=== PATIENT | male | born 1950 | race Caucasian/White ===

== ENCOUNTER → 2018-03-01 | Outpatient (REF) | LOC: ZLAB.WCH 16:10 | DX: Z01.89 Encounter for other specified special examinations (principal) | CPT/HCPCS: G0103 ==

== ENCOUNTER 2020-08-14 13:39 | Inpatient (IN) | payer MEDICARE, BC ==
[~2020-08-14] VITALS: Ht 167.6 cm; Wt 73.0 kg
[2020-09-09] VITALS (12 sets, daily range): BP systolic 86–148; BP diastolic 54–85; PULSE 73–105; TEMP 97.4–98.9
[2020-09-09] MEDS ORDERED: ASPIRIN 81M81 MG/TA2 PO (05:55)
[2020-09-09] MEDS ORDERED: PRINZIDE 25 MG-1 TAB PO (05:55)
[2020-09-09] MEDS ORDERED: EPA FISH OIL1 SGL PO (05:56)
--- NOTE | 2020-09-09 15:57 | NUR ---
Patient alert and oriented, answers questions appropriately. See assessment. Abdomen soft, slight tender, non distended. Bowel sounds hypoactive x4 quads. No flatus. Lap sites x5 to abdomen with edges well approximated, no redness or drainage noted. ERAS protocol reviewed with patient. No c/o at this time.
--- NOTE | 2020-09-09 23:49 | NUR ---
Patient assessed around 2014. Alert and oriented x 4, and able to make needs known. Reported mild pain, rated as a 3 to abdomen at time of assessment. Peripheral INT to right hand. Denies SOB and dyspnea. LS CTA. Respirations even and unlabored. HRR. Capillary refill less than 3 seconds. Non-tenting skin turgor. BSAx4. Abomen soft and non-tender. Denies passing gas. Has been up walking around. 5 lab sites to abdomen. No edema. Voices no questions, needs, or concerns at this time. Resting in bed with call light within reach.
--- NOTE | 2020-09-10 00:34 | NUR ---
Patient's BP currently 86/54, rechecked multiple times. Did get dizzy and light headed when getting up. Patient stated that he had taken his home Lisinopril at bedtime. Patient did not notify or ask staff about taking medication. BP around 1999 had been 96/67. Call placed to Dr. Raymond, on-call for Dr. Rodríguez. New order for 500 ml NS bolus. Started at this time. Patient given scheduled APAP as well.
[2020-09-10 03:58] VITALS: BP 73/45; PULSE 76; TEMP 97.4
[2020-09-10 05:00] VITALS: BP 92/62
--- NOTE | 2020-09-10 05:47 | NUR ---
Patient continues to have low BP. Most recent systolic BP was in the 90s. Denies having dizzyness at this time. High fall risk precautions are in place. Denies having pain and discomfort. Received PRN APAP per orders. Resting in bed with call light within reach.
[2020-09-10 07:04] LABS: HEMATOCRIT 31.9 % (42.0-52.0)
[2020-09-10 07:38] VITALS: BP 88/44; PULSE 90; TEMP 97.9
[2020-09-10 07:38] LABS: CALCIUM 7.9 mg/dL (8.4-10.2); CREATININE, serum 2.12 (0.66-1.25); MAGNESIUM 1.6 mg/dL (1.6-2.3); PHOSPHOROUS 3.8 mg/dL (2.5-4.5); POTASSIUM 4.3 mmol/L (3.4-5.0)
--- NOTE | 2020-09-10 09:53 | NUR ---
PT INDEPENDENT IN ROOM AND HALLS. IV BOLUS COMPLETE MEDS HELD PER ORDERS.
[2020-09-10 11:23] VITALS: BP 78/42; PULSE 75; TEMP 97.4
--- NOTE | 2020-09-10 11:45 | NUR ---
Seed Trucker met with patient to discuss discharge planning. Patient lives alone in [place] and sees Dr. Hubert Feliciano for primary care. Patient obtains medications from [facility] with no difficulties. Patient does not use any DME and is independent with ADLS. Patient does not have Advance Directives and is not interested in designating DPOA-HC at this time. Patient is not , does not have children, and his parents are . Patient has two brothers, Torrey (ph#[phone]) and Mathew. Patient plans to return home upon discharge. Discharge Plan: Home
--- NOTE | 2020-09-10 12:01 | NUR ---
First visit from the air pumper. No needs right now.
--- NOTE | 2020-09-10 12:38 | NUR ---
BOLUS OF 500 MLS NS STARTED NOW PER HERIBERTO LITTLEJOHN.
[2020-09-10 12:57] LABS: BASO % 0.2 % (0.0-2.0); GRAN # 10.6 (1.4-6.5); GRAN % 74.6 % (42.2-75.2); LYMPH # 2.2 (1.2-3.4); LYMPH % 15.7 % (20.0-51.0); MEAN CELL VOLUME 96 fl (80.0-100.0); MEAN CORPUSCULAR HGB CONC 35 g/dl (33.0-37.0); MEAN PLATELET VOLUME 10.1 fl (7.4-10.4); MONO # 1.3 (0.1-0.6); MONO % 9.1 % (1.7-9.3); PLATELET COUNT 200 K/mm3 (130-400); RED BLOOD COUNT 2.86 M/mm3 (4.20-5.60); REDCELL DISTRIBUTION WIDTH-CV 12.7 % (11.5-14.5)
[2020-09-10 12:58] LABS: HEMATOCRIT 27.4 % (42.0-52.0); HEMOGLOBIN 9.5 g/dl (13.5-18.0); MEAN CORPUSCULAR HEMOGLOBIN 33 pg (27.0-31.0)
[2020-09-10 13:09] LABS: CALCIUM 7.7 mg/dL (8.4-10.2); CREATININE, serum 2.41 (0.66-1.25); POTASSIUM 3.8 mmol/L (3.4-5.0)
[2020-09-10 15:06] VITALS: BP 122/62; PULSE 102; TEMP 97.8
[2020-09-10 17:31] LABS: COLLECTION METHOD CLEAN CATCH
[2020-09-10 17:58] LABS: MUCOUS Present /lpf; PH 6 (5-8); SQUAMOUS EPITHELIAL None Seen /hpf; URINE APPEARANCE Clear; URINE BACTERIA Rare /hpf; URINE BILIRUBIN Negative (NEGATIVE); URINE BLOOD 2+ (NEGATIVE); URINE COLOR Yellow; URINE GLUCOSE 2+ (NEGATIVE); URINE KETONE Trace (NEGATIVE); URINE LEUKOCYTE ESTERASE Negative (NEGATIVE); URINE NITRATE Negative (NEGATIVE); URINE PROTEIN(semi-quant) Negative (NEGATIVE); URINE RBC 20-50 /hpf; URINE UROBILINOGEN Negative (NEGATIVE)
[2020-09-10 19:35] VITALS: BP 91/47; PULSE 88; TEMP 98.6
--- NOTE | 2020-09-10 20:00 | NUR ---
Patient sitting up in bed resting. Alert and oriented x3. Assessment complete. Denies pain at this time. Fluids infusing per orders. Lap sites x 4 and low transverse site with edges well approximated. Denies pain or further needs at this time.
[2020-09-11] VITALS (8 sets, daily range): BP systolic 83–153; BP diastolic 50–71; PULSE 87–102; TEMP 98.3–99.7
--- NOTE | 2020-09-11 00:09 | NUR ---
Contacted Jennifer LITTLEJOHN about low BP, fluid bolus initiated per orders.
--- NOTE | 2020-09-11 05:48 | NUR ---
Patient doing well throughout the night. Denies pain throughout the night. Up to restroom with SBA, having bloody stools x2. Fluids continue infusing per orders. Denies further needs at this time. Will report off to day shift.
[2020-09-11 06:45] LABS: BASO % 0.2 % (0.0-2.0); EOS % 0.1 % (0-4.0); GRAN # 9.2 (1.4-6.5); GRAN % 69.6 % (42.2-75.2); LYMPH # 2.5 (1.2-3.4); LYMPH % 18.9 % (20.0-51.0); MEAN CELL VOLUME 100 fl (80.0-100.0); MEAN CORPUSCULAR HGB CONC 34 g/dl (33.0-37.0); MEAN PLATELET VOLUME 10.3 fl (7.4-10.4); MONO # 1.4 (0.1-0.6); MONO % 10.7 % (1.7-9.3); PLATELET COUNT 201 K/mm3 (130-400); RED BLOOD COUNT 2.58 M/mm3 (4.20-5.60); REDCELL DISTRIBUTION WIDTH-CV 13.2 % (11.5-14.5)
[2020-09-11 06:48] LABS: HEMATOCRIT 25.7 % (42.0-52.0); HEMOGLOBIN 8.7 g/dl (13.5-18.0); MEAN CORPUSCULAR HEMOGLOBIN 34 pg (27.0-31.0)
[2020-09-11 06:59] LABS: CALCIUM 7.9 mg/dL (8.4-10.2); CREATININE, serum 1.05 (0.66-1.25); POTASSIUM 3.9 mmol/L (3.4-5.0)
--- NOTE | 2020-09-11 07:58 | NUR ---
Patient resting in bed. rounded, plan of care reviewed. Patient denies wanting breakfast this am. I discussed with him the importance of accurate I&O. Patient too call when he uses the restroom. Ivf per orders. Lovenox held this am per orders & we discussed importance of SCDs & ambulation of halls. Incisions site edges well approximated. Open to air. Abdomen rounded. bowels audible, he reports flatus. Will monitor.
--- NOTE | 2020-09-11 09:17 | NUR ---
Patient has ordered breakfast. Hospitals[facility] rounded. Patient plans to walk halls & brush teeth after he eats. Will continue to [facility].
--- NOTE | 2020-09-11 11:00 | NUR ---
Patient up and ambulated the halls. He was up to the bathroom & had a loose stool dark blood noted. Ivf per orders. Fresh linens & he brushed his teeth, no interest in shower at thistime.
[2020-09-11 11:25] LABS: MAGNESIUM 1.8 mg/dL (1.6-2.3)
[2020-09-11 15:19] LABS: HEMATOCRIT 22.9 % (42.0-52.0); HEMOGLOBIN 7.7 g/dl (13.5-18.0)
--- NOTE | 2020-09-11 16:12 | NUR ---
Patietn resting in bed. Up to the bathroom, dark loose stool noted. Update called to Anel Valdivia & . They were updated on H&H level and stool. Iv to Int per orders. Encouraged PO intake. Vss. Will monitor.
--- NOTE | 2020-09-11 18:33 | NUR ---
Macy had ice cream for dinner. Continue to encourage PO intake. Watching TV. Will report off to nightnurse
[2020-09-12 04:07] VITALS: BP 146/80; PULSE 91; TEMP 99.8
[2020-09-12 06:42] LABS: BASO % 0.3 % (0.0-2.0); EOS % 0.1 % (0-4.0); GRAN # 8.1 (1.4-6.5); LYMPH # 1.9 (1.2-3.4); LYMPH % 16.7 % (20.0-51.0); MEAN CELL VOLUME 96 fl (80.0-100.0); MEAN CORPUSCULAR HGB CONC 34 g/dl (33.0-37.0); MEAN PLATELET VOLUME 10.7 fl (7.4-10.4); MONO # 1.1 (0.1-0.6); MONO % 9.5 % (1.7-9.3); PLATELET COUNT 194 K/mm3 (130-400); REDCELL DISTRIBUTION WIDTH-CV 12.9 % (11.5-14.5)
[2020-09-12 06:50] LABS: HEMATOCRIT 23.1 % (42.0-52.0); HEMOGLOBIN 7.8 g/dl (13.5-18.0); MEAN CORPUSCULAR HEMOGLOBIN 33 pg (27.0-31.0)
[2020-09-12 06:55] LABS: CALCIUM 8.2 mg/dL (8.4-10.2); CREATININE, serum 0.61 (0.66-1.25); POTASSIUM 3.8 mmol/L (3.4-5.0)
[2020-09-12 07:56] VITALS: BP 149/71; PULSE 91; TEMP 98.1
--- NOTE | 2020-09-12 08:00 | NUR ---
Patient continues to have minimal appetite. He was willing to have an ensure. Po intake encouarged. He denies nausea. Pain managed per eras. Abdomen rounded. bowels audible, he reports flatus. Incisons edges well approximated, some brusing noted. brusing noted to scrotum. Int. Scds. Will continue to monitor.
[2020-09-12] MEDS ORDERED: PRINIVIL10 MG PO (09:41)
[2020-09-12] MEDS ORDERED: ADVOCATE BLOOD1 EAC1 MC (09:43)
[2020-09-12 10:17] VITALS: BP 120/66; PULSE 87
[2020-09-12 12:10] VITALS: BP 134/64; PULSE 97; TEMP 98.3
--- NOTE | 2020-09-12 14:52 | NUR ---
Patient has another ensure for lunch & cookie. No Bms yet this shit. He has been indepedent in room. Will monitor.
[2020-09-12 15:48] VITALS: BP 132/7; BP 132/71; PULSE 80; TEMP 98.4
--- NOTE | 2020-09-12 18:16 | NUR ---
Patient still has no appetite. We discussed the whole menu. He will have ensure for dinner. He ambulated halls & did well. Will report off to nightnurse
--- NOTE | 2020-09-12 19:58 | NUR ---
Awake, alert, oriented x 4, able to make all needs known, call shah w/i reach, denies pain, call shah w/i reach, updated on plan of care.
[2020-09-12 20:24] VITALS: BP 120/59; PULSE 95; TEMP 99.6
[2020-09-13 00:08] VITALS: BP 118/63; PULSE 87; TEMP 99.5
[2020-09-13 04:20] VITALS: BP 115/60; PULSE 81; TEMP 98.9
[2020-09-13 06:46] LABS: HEMATOCRIT 21.6 % (42.0-52.0); HEMOGLOBIN 7.4 g/dl (13.5-18.0)
[2020-09-13 07:37] VITALS: BP 114/60; PULSE 78; TEMP 98.4
--- NOTE | 2020-09-13 07:45 | NUR ---
Patient resting in bed. trying to eat. denies nausea. pain rating 1/10. denies the need for medication. continue to hold lisinopril with blood pressure maanged. Held ASA with H&H drop as well. Patient reports he had one stool overnight. passing flatus. Will ginger.
[2020-09-13 09:44] LABS: ALBUMIN 2.9 gm/dL (3.5-5.0); BILIRUBIN,TOTAL 0.8 mg/dL (0.0-1.0); CALCIUM 8.5 mg/dL (8.4-10.2); CREATININE, serum 0.61 (0.66-1.25); POTASSIUM 3.6 mmol/L (3.4-5.0); TOTAL PROTEIN 5.5 gm/dL (6.4-8.2)
[2020-09-13] MEDS ORDERED: NATURAL IRON65 MG PO (11:30)
[2020-09-13 11:36] VITALS: BP 160/73; PULSE 103; TEMP 97.7
[2020-09-13 12:02] VITALS: BP 130/74; PULSE 102
--- NOTE | 2020-09-13 12:45 | NUR ---
rounded. rounded. Orders obtained. Iron tab with orange juice. Patient plans on eating lunch at home. Int Dc. Patient wanting to take a shower at home . Patient dressed. We reviewed all discharge paperwork including activity restrictions & diet restricitions. Po intake encouarged. Patient sent with a few ensure shakes. He plans on going to his [facility] on monday when they reopen to get prescriptions. We discussed obtaining blood presure monitor & keeping records for PCP. Patient also aware he needs to call PCP monday to follow up about blood counts & Bp. Follow up scheduled with & Patient knows the importance of calling with any questions or concerns. Patient ambulated out with all belogings. Denies quesions or concerns.
== END 2020-09-13 13:00 | disposition home or self-care (01) | DRG 330 ==
LOC: INPTSU 09-09 05:15 → SURG 09-09 07:30
PROVIDERS: Internal Medicine; Physician Assistant; Surgery; ADMIT Surgery
PROC: 0DTF4ZZ Resection of Right Large Intestine, Percutaneous Endoscopic Approach (ICD-10-PCS; principal; 2020-09-09 07:30)
DX: D12.3 Benign neoplasm of transverse colon (principal); E87.1 Hypo-osmolality and hyponatremia; N17.9 Acute kidney failure, unspecified; D12.2 Benign neoplasm of ascending colon; E86.1 Hypovolemia; I10 Essential (primary) hypertension; D64.9 Anemia, unspecified; I95.81 Postprocedural hypotension; Z79.82 Long term (current) use of aspirin
CPT/HCPCS: 99223; 99231-AI; 99232-AI; A4314; A9284; J1100; J1650; J2370; J2405; J2704; J3010; J7030; J7040; J7050; J7120

== ENCOUNTER → 2023-07-26 | Outpatient (CLI) | payer MEDICARE, BC ==
[~2023-07-26] VITALS: Ht 167.6 cm; Wt 65.7 kg
[~2023-07-26] MED LIST: ADVOCATE BLOOD1 EAC1 MC; ASPIRIN 81M81 MG/TA2 PO; EPA FISH OIL1 SGL PO; FERROUSAL325 MG PO; NATURAL IRON65 MG PO; PRINIVIL10 MG PO; PRINZIDE 25 MG-1 TAB PO; VITAMIN D31000 I1 PO; VITAMINC1000TA PO; ZESTRIL30 MG PO
[2023-07-26 09:49] VITALS: BP 115/70; PULSE 81; TEMP 98.2
[2023-07-26 10:11] LABS: INR 1.6 (0.8-3.0); PROTHROMBIN TIME 17.4 SECONDS (9.7-12.8)
[2023-07-26 10:39] VITALS: BP 121/71; PULSE 76
== END ==
LOC: COL.RAD 09:26
PROVIDERS: Radiology Diagnostic Radiology
DX: R59.0 Localized enlarged lymph nodes (principal)
CPT/HCPCS: 32108

== ENCOUNTER → 2023-08-14 | Outpatient (CLI) | payer MEDICARE, BC ==
[~2023-08-14] MED LIST changes: +B-12 500 MCG PO
== END ==
LOC: COL.VAS 10:45
DX: C81.99 Hodgkin lymphoma, unspecified, extranodal and solid organ sites (principal)

== ENCOUNTER → 2023-08-16 | Outpatient (CLI) | payer MEDICARE, BC ==
[2023-08-16] VITALS (14 sets, daily range): BP systolic 82–127; BP diastolic 42–79; PULSE 60–72; TEMP 97.7
[~2023-08-16] VITALS: Ht 162.6 cm; Wt 63.3 kg
[~2023-08-16] MED LIST changes: +Gelatin Sponge,Absorbable Size 12-7 SPONGE TP SCH
[2023-08-16 10:53] LABS: INR 1.7 (0.8-3.0); PROTHROMBIN TIME 18.3 SECONDS (9.7-12.8)
--- NOTE | 2023-08-16 10:55 | NUR ---
Dr Johnson notified of PT/INR levels. States we are good to proceed.
--- NOTE | 2023-08-16 11:00 | NUR ---
Pt to ct per wheelchair. Pt positioned on ct table in supine postion. Monitors applied and O2 on at 2l/nc.
--- NOTE | 2023-08-16 11:10 | NUR ---
Dr Johnson into see pt.
--- NOTE | 2023-08-16 11:33 | NUR ---
Specimens obtained by Dr Johnson, specimens placed in formalin and RPMI. Specimens labeled.
== END ==
LOC: COL.RAD 09:42
PROVIDERS: Internal Medicine
DX: C81.99 Hodgkin lymphoma, unspecified, extranodal and solid organ sites (principal); K76.9 Liver disease, unspecified